=== PATIENT | female | born 1990 | race Caucasian/White ===

== ENCOUNTER 2016-09-27 21:19 | Inpatient (IN) | payer MEDICAID ==
[~2016-09-27] VITALS: Ht 172.7 cm; Wt 97.7 kg
[~2016-09-27 21:19] MED LIST: LEXAPRO 10MG10 MG PO; MARNATAL-F1 CAP PO; PERCOCET 325 MG1 TA2 PO; TRANDATE 100MG100 MG PO
[2016-09-27 21:50] VITALS: BP 167/106; PULSE 107; TEMP 99.2
[2016-09-27 22:00] VITALS: BP 167/98; PULSE 102; TEMP 99.2
[2016-09-27 22:30] VITALS: BP 139/89; PULSE 114
[2016-09-27 22:43] LABS: BASO % 0.2 % (0.0-2.0); EOS # 0.1 (0.0-0.7); EOS % 0.5 % (0-4.0); GRAN # 9.1 (1.4-6.5); GRAN % 73.3 % (42.2-75.2); HEMATOCRIT 38.3 % (37.0-47.0); HEMOGLOBIN 12.9 g/dl (12.5-16.0); LYMPH # 2.1 (1.2-3.4); LYMPH % 17.1 % (20.0-51.0); MEAN CELL VOLUME 88 fl (80.0-100.0); MEAN CORPUSCULAR HEMOGLOBIN 30 pg (27.0-31.0); MEAN CORPUSCULAR HGB CONC 34 g/dl (33.0-37.0); MEAN PLATELET VOLUME 10.6 fl (7.4-10.4); MONO % 8.1 % (1.7-9.3); PLATELET COUNT 268 K/mm3 (130-400); RED BLOOD COUNT 4.35 M/mm3 (4.10-5.30); REDCELL DISTRIBUTION WIDTH-CV 14.3 % (11.5-14.5); WHITE BLOOD COUNT 12.4 K/mm3 (4.8-10.8)
[2016-09-27 22:49] LABS: PH 6 (5-8); SQUAMOUS EPITHELIAL None Seen /hpf; URINE APPEARANCE Clear; URINE BACTERIA None Seen /hpf; URINE BILIRUBIN Negative (NEGATIVE); URINE BLOOD 1+ (NEGATIVE); URINE COLOR Straw; URINE GLUCOSE Negative (NEGATIVE); URINE KETONE Negative (NEGATIVE); URINE RBC 0-2 /hpf; URINE UROBILINOGEN Negative (NEGATIVE); URINE WBC 0-2 /hpf
[2016-09-27 22:54] LABS: ADJUSTED CALCIUM 9.8 mg/dL (8.4-10.2); ALBUMIN 3.6 gm/dL (3.5-5.0); BILIRUBIN,TOTAL 1.1 mg/dL (0.0-1.0); CALCIUM 9.5 mg/dL (8.4-10.2); CREATININE, serum 0.58 mg/dL (0.52-1.25); POTASSIUM 3.8 mmol/L (3.4-5.0)
[2016-09-27 23:00] VITALS: BP 141/90; PULSE 94
[2016-09-27 23:30] VITALS: BP 150/70; PULSE 93
[2016-09-27 23:45] VITALS: BP 118/69; PULSE 112
[2016-09-28] VITALS (28 sets, daily range): BP systolic 109–150; BP diastolic 64–95; PULSE 78–114; TEMP 97.3–98.5
[2016-09-29 07:30] VITALS: BP 131/91; PULSE 89; TEMP 97.6
[2016-09-29] MEDS ORDERED: IBU600 MG PO (09:00)
[2016-09-29] MEDS ORDERED: PROCARDIA XL 3030 MG PO (09:01)
== END 2016-09-29 12:05 | disposition home or self-care (01) | DRG 775 ==
LOC: LDRO 21:19 → LDR 21:53 → OB 09-28 08:30
PROVIDERS: Obstetrics & Gynecology
PROC: 10E0XZZ Delivery of Products of Conception, External Approach (ICD-10-PCS; principal; 2016-09-28)
PROC: 0KQM0ZZ Repair Perineum Muscle, Open Approach (ICD-10-PCS; 2016-09-28)
DX: O13.3 Gestational [pregnancy-induced] hypertension without significant proteinuria, third trimester (principal); O70.1 Second degree perineal laceration during delivery; Z3A.38 38 weeks gestation of pregnancy; Z37.0 Single live birth
CPT/HCPCS: J2590; J7120